=== PATIENT | female | born 1985 | race Caucasian/White ===

== ENCOUNTER 2021-05-01 18:20 | Emergency (ER) | payer MEDICAID ==
[~2021-05-01] VITALS: Ht 165.1 cm; Wt 64.0 kg
[2021-05-01] MEDS ORDERED: HYDR-4001 MT (20:07)
[2021-05-01] MEDS ORDERED: IBUP-2029 MT (20:07)
[2021-05-01] MEDS ORDERED: KETOROLAC 30MG/ML VIAL IV ONE (20:15)
[2021-05-01 20:17] VITALS: BP 139/75
== END 2021-05-01 21:37 | disposition home or self-care (01) ==
LOC: ER 18:20
DX: S62.102A Fracture of unspecified carpal bone, left wrist, initial encounter for closed fracture (principal); V23.4XXA Motorcycle driver injured in collision with car, pick-up truck or van in traffic accident, initial encounter; Y93.89 Activity, other specified; Y92.9 Unspecified place or not applicable
CPT/HCPCS: 29125; 73110; 73130; 96374; 99284; J1885